=== PATIENT | female | born 1955 | race Caucasian/White ===

== ENCOUNTER 2017-10-02 12:30 | Outpatient (RCR) | payer OTHER, SELFPAY ==
--- NOTE | 2017-09-11 10:17 | PTTR_ITS ---
DATE: 09/11/17 SUBJECTIVE: Returning to work on Friday with restriction per work restriction form filled out by Dr. Ken. He has documented that she can not reach above her head more that 8 minutes per work day, but she feels she can do this without difficulty, as she is already doing that up to 2-3 hours throughout the day at home, without great pain. She is going to stop at his office to have him change the form. OBJECTIVE: KX applied to all codes N/A Manual therapy: ([id number]). To R Shoulder: Posterior capsule STM, TPR, and infraspinatus and supraspinatus work, including down regulation, incorporating IASTM Mobilization all planes, via accessory gliding grade 4++ and end range oscillations, with distraction and AP oscillations. Focus on IR mobilization where she is generally more restricted, using distraction, AP mob and IR MET's Pre rx PROM: Flexion 160*, abduction 160*, ER 80*, IR 45* Post rx PROM: Flexion 1705*, abduction 170*, ER 90*, IR 70* Direct treatment time: 30 minutes Total treatment time: 30 minutes Completes ther ex via wellness program at no charge, see flow sheet.
--- NOTE | 2017-09-15 14:51 | PTTR_ITS ---
DATE: 09/15/17 SUBJECTIVE: Pt reports that it is slow at work because of her restrictions but she is happy to be back. OBJECTIVE: Manual therapy: ([id number]). Pt received scapular jiggling and A/P glides. Pt then received AAROM into all planes with extended holds into shoulder IR and stretching the posterior cuff. Pt was able to achieve full ROM into ER and almost full ROM into flexion and IR. Therapeutic procedures ([id number]). * X Provided skilled instruction in proper exercise performance: Pt completed UE strengthening, scapular stabilization ther ex, and work simulated activities as per flow sheet. Direct treatment time: 30 Total treatment time: 45
--- NOTE | 2017-09-18 15:12 | PTTR_ITS ---
DATE: 09/18/17 SUBJECTIVE: Has returned to work on light duty, she is to not have her arm overhead her for more than 20 minutes at a time. 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 She is more inactive, which she feels has allowed for her shoulder to stiffness up some, but she remains compliant with her HEP stretches. Due to her inactivity, she feels she has made less gains since last being at PT. She will follow up with Jesus Manuel on the 08 of October, and will remain on the same work restrictions until that time. OBJECTIVE: KX applied to all codes N/A R shoulder AROM: flexion 175*, abduction 175*, ER T4, IR mid R buttock. Pain end range IR, stiffness otherwise endrange flexion and abduction. PROM Flexion 180*, abduction 180* with mild discomfort but alleviated with AP MWM, IR 30*, ER 90*. End range IR 80* Strength: Flexion 4+/5, abduction 4-/5 with pain, ER 4+/5, IR 3+/5 with pain Manual therapy: ([id number]). R GH gliding all planes of accessory motion for general desensitization, with AP restriction appreciated. End range flexion and quadrant mobilization with AP grade 4++ oscillations and sustained holds. ST mobilization, with focus down rotation, with arm into pain free IR position. IR mobilization with IR MET's, at multiple angles of IR from 0-70* in loose packed position. Lower trap cueing. STM R posterior shoulder capsule, and infraspinatus and supraspinatus fossa. HEP Progression: Instructed in IR isometrics at multiple angles of flexion in frontal and coronal planes. Lower trap cueing. Completes ther ex wellness routine, with head athletic trainer, per my direction. See flow sheet. Direct treatment time: 30 minutes Total treatment time: 30 minutes Assessment: Making steady gains, with most remarkable impairment of restriction into IR direction and IR weakness. Has great response to use of IR MET's with excellent mobility gains post treatment. Patient to initiate more IR strengthening at home, with good scapular stability mechanics with lower trap activation. Plan: Proceed 2x/week for mobilization and STM of R shoulder girdle, and strengthening with focus IR.
--- NOTE | 2017-09-24 09:31 | PTTR_ITS ---
DATE: 09/24/17 SUBJECTIVE: Pt reports feeling fine, no pain. Still has weakness with overhead activity and functional IR. Still on light duty at work and this is frustrating to her. OBJECTIVE: Manual therapy: ([id number]). With pt in supine, mobilizations applied to GH joint including AP and posterolateral glides, PROM into flexion 170*, abduction 170*, IR 80* and ER 90*. Stretch applied at end ranges. Mild discomfort reported at end range flexion and ER. Cross friction work to GT. Scapular jiggles applied. Pt turned to left sidelying , STM to posterior capsule, lateral scapular border, supraspinatus, infraspinatus, and upper trap. Discomfort noted in posterior capsule and upper trap. Friction massage to posterior capsule to stimulate blood flow. TPR to upper trap, supraspinatus. Pt then went out to clinic gym to complete strengthening program via obedience trainer supervision. Direct treatment time: 30 minutes Total treatment time: 30 minutes
--- NOTE | 2017-09-29 13:33 | PTTR_ITS ---
DATE: 09/29/17 SUBJECTIVE: Ирина stating that she is overall making good gains struggles mainly now with higher level activities such as heavy lifting overhead movements. She has returned to work really without much restriction or complication. She feels that if anything it is really making her shoulder worse due to the fact that she is not as active. OBJECTIVE: ROM (R) shoulder: Full with end range soft tissue restriction into flexion and abduction but no pain. IR only reaches the level of L1 versus T9 at the (L) but this is improved from (R) mid buttock compared to prior sessions. Strength: Flexion/ Abduction are both 4+/5, IR is 3+ to 4-/5 with ER 5/5. Accessory Motions are WNL with glenohumeral joint and moderate limitations with AP scap thoracic WNL. Manual therapy: ([id number]). Mobilize (R) glenohumeral joint in all planes of motion with distraction utilized into flexion and quadrant position with AP MWM at end ranges. Cross body for posterior capsule stretching with stabilization of the scapula. Work on IR mobilization utilizing IR METs at multiple angles of abduction. In prone complete (R) glenohumeral extension and end range oscillations incorporating adduction and IR overpressure with proper scapular alignment. She has been seen for wellness program with a strainer mill operator at no charge per flow sheet. Please see flow sheet for specifics. Direct treatment time: 30 minutes Total treatment time: 30 minutes
--- NOTE | 2017-10-02 13:18 | PTTR_ITS ---
DATE: 10/02/17 SUBJECTIVE: Reports to be making gains weekly. She has no difficulty with her current work duties, and is hoping Dr. Ken will allow for her full return to work duties, at her follow up with him next. week. She has no pain or limitation with basic ADL's or self care activities. She only has pain, rating in at a 5/10, with quick, unexpected movements of the R arm. Pain quickly resolves. Compliant with HEP: x Yes No OBJECTIVE: KX applied to all codes N/A Manual therapy: ([id number]). To R shoulder: Distraction, and gliding all panes for general desensitization for treatment prep AP garde 4++ gliding 0-90* abduction, and end range flexion and abduction/ quadrant. ER end range AP MWM, for pain reduction. IR mobilization extensively, with IR MET's, grade 4-- oscillations with distraction and AP MWM Prone GH extension with adduction over pressure, to encourage IR mobility. STM R posterior capsule and infraspinatus/teres minor AROM: Flexion 170*, abduction 170* - both slight scapular plane movement. IR L1 , ER WNL PROM: Flexion 180* with P!, abduction 180* with slight scapular plane movement with P!, ER 80* painfree, with overpressure sever pain. IR 45* pre-treatment, 80 * post treatment with mild P!. Strength: Flexion 5/5, abduction 4/5 with discomfort, ER 4+/5, IR 3+/5, unable to perform lift off. Special testing: Empty can: Mild discomfot, but 4+/5 strength. Peters Lenard and Neer Impingement: Positive. Lift off: Positive. Anterior clunk labral testing: Positive. Review HEP, and patient demonstrates good understanding of entire ther ex routine flow sheet, to be able to carry out exercises appropriately at home. She is instructed to do this daily, with focus of IR isometrics, lower trap activation with all exercises and general close chain stabilization. Direct treatment time: 30 minutes Total treatment time: 30 minutes Assessment: Ирина presents with clinical signs and symptoms consistent with internal derangement of the R shoulder, as demonstrated by joint crepitus and instability with IR, anterior joint swelling, gross weakness, specifically of IR , and poor dynamic stability of the shoulder, and appreciable episodic joint clunk with rotation movements. She is making steady, but slow, progress with rehabilitation efforts. Her most remarkable impairments include IR weakness and mobility loss, visual swelling at anterior GH joint, and end range flexion and abduction capsular restriction. She has reduced, but still present, soft tissue dysfunction through the R shoulder girdle (specifically the fascia overlying the posterior capsule, and subscapularis tension), and gaining strength and mobility. Her continues impairments are contributing to functional limitations of quick movements of the right shoulder, and occasional struggle with long lever lifting. Functional ADL's and self care not affected. I think she is appropriate to have her work restrictions reduced. Plan: Proceed with PT 1x/week, with patient independent with strengthening and stabilization, self mobilization stretching the best she can.
--- NOTE | 2017-10-09 10:58 | NT_ITS ---
Ирина cancelled today's appointment. She got called in to work. She is doing fine, therefore did not reschedule. She will call if she needs to reappoint. Kavita Llanes [place]
== END 2017-10-10 23:59 | disposition home or self-care (01) ==
LOC: PT 12:30
PROVIDERS: PCP Family Medicine; Referring Provider Student in an Organized Health Care Education/Training Program; Visit Provider Student in an Organized Health Care Education/Training Program
DX: S46.901D Unspecified injury of unspecified muscle, fascia and tendon at shoulder and upper arm level, right arm, subsequent encounter (principal)
CPT/HCPCS: 97110; 97140

== ENCOUNTER → 2017-10-08 14:24 | Outpatient (CLI) | payer OTHER, SELFPAY ==
--- NOTE | 2017-10-09 07:44 | ONE_ITS ---
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 ASSESSMENT Left hip pain tendinopathy post fall. PLAN Awaiting Work Comp approval for surgical intervention, with goal of pain relief. She is returning to work without limitations at this time. She understands that she will continue to modify tasks as needed, but has not had difficulty managing this safely. I did not arrange a followup here, but will see her post op or if she runs into any difficulties with work activities. Greater than 50% of this visit was spent in planning and coordinating. SUBJECTIVE Ms. Méndez returns for followup on left hip pain related to tendon tear. She has just been re-evaluated by Orthopedics and surgery is being recommended. They are seeking clearance from Workers Comp with an estimated schedule date of 12/09. She says she has returned to work on light duty in regard to her shoulder only. In regard to the left hip, she has been able to perform the functions of her job despite the limitations that were created at her last visit here. She says the hip remains painful laterally. It is worse at night, especially when rolling over. This really awakens her from a sound sleep. REVIEW OF SYSTEMS Right shoulder pain, much improved. No chest, pain, cough, wheeze or dyspnea. No numbness, tingling, paresthesias of the lower extremities. She does have ongoing bilateral knee pain unrelated to hip pain. PAST MEDICAL HISTORY Hypertension. Gastroesophageal reflux disease. Low back pain stable at this time. Cholecystectomy in the distant past. Unspecified cardiac valve disease with recent cardiac evaluation. CURRENT MEDICATIONS 1. Omeprazole. 2. Ibuprofen and Tylenol p.r.n. 3. Lisinopril 5 mg daily. ALLERGIES No known allergies. SOCIAL Single, living with significant other. HABITS Quit smoking over 20 years ago. One alcoholic beverage per day. Tries to stay active outdoors with yard work. Enjoys swimming. OBJECTIVE Alert, pleasant, cooperative, in no acute distress. Gait is mildly antalgic as she begins ambulating, but it normalizes after a few steps. Musculoskeletal exam - Left hip is exquisitely tender to palpation posterior to the greater trochanter. Straight leg raises are essentially negative, each leg extending about 70 degrees. DTR's prepatellars are 1+ bilaterally.
== END ==
PROVIDERS: PCP Family Medicine; Visit Provider Nurse Practitioner Family
DX: S76.012D Strain of muscle, fascia and tendon of left hip, subsequent encounter (principal); M25.552 Pain in left hip; M54.5 Low back pain
CPT/HCPCS: 99214

== ENCOUNTER 2017-12-03 13:47 | Outpatient (CLI) | payer OTHER, SELFPAY ==
--- NOTE | 2017-12-03 18:13 | W.PREOPHP ---
Date of service: 12/03/17 Assessment and Plan (1) Trochanteric bursitis of left hip: Current visit: Yes Status: Chronic IT band tenotomy, with abductor tendon repair. Details of surgery were discussed with patient as well as risks, and pertinent anatomy. All questions were answered. History of Present Illness Chief Complaint: Left hip pain Narrative: Ирина is a 62-year-old female who is been complaining of left hip pain for many months now. She had an injury at work where she slipped on the ice landing directly on her left hip. She has been trying conservative measures to decrease the pain in her left hip including physical therapy, injections, and exercises at home. She states that it bothers her the most when she is going up stairs, or getting up from a seated position especially if she is been seated for a long time. She has also been trying anti-inflammatories, none of which have helped with her hip pain. She has been able to work through her hip pain, but it is getting the way of her normal activities and it is aggravating even at work. She had a previous MRI done in August which does show some partial tearing of the abductor tendons in the left hip. At this point since she has failed conservative treatment, and especially with findings of a potential tearing of the abductor tendons, she would like to move forward with IT band tenotomy and abductor tendon repair. Pertinent Surgical Information Patient relates a recent discovery of a systolic murmur at her normal PCP visit this summer. She was sent for an echocardiogram which revealed only minor mitral valve and tricuspid valve regurgitation. Also showed mild left ventricular hypertrophy. She was instructed by her PCP that this is not significant enough to worry about. Records were obtained from [facility] about the echocardiogram. She also states that she had her cholecystectomy done here about 20 years ago, and did have some difficulty waking up from anesthesia. Otherwise no significant complications from anesthesia. Patient denies history of CVA, [place], angina, asthma, COPD, renal or liver disorders, hepatitis, bleeding disorders, diabetes, immune or thyroid disorders. Review of Systems Constitutional Denies fever(s) ENT Denies dizziness and Denies sore throat Cardiovascular Denies chest pain, Denies palpitations and Denies dyspnea Respiratory Denies dyspnea Gastrointestinal Denies abdominal pain, Denies melena, Denies hematochezia, Denies diarrhea, Denies nausea and Denies vomiting Genitourinary Denies hematuria and Denies dysuria Neurologic Denies dizziness Endocrine Denies palpitations [facility] Medical History HTN (hypertension) (Chronic) Social History Smoking/Tobacco Use Status: Former Tobacco Use how long ago did patient quit smokin years alcohol intake: current alcohol intake frequency: 0-2 drinks per day details: 1 beer nightly Surgical History History of bilateral cataract extraction (Chronic) History of cholecystectomy (Chronic) History of tonsillectomy and adenoidectomy (Chronic) Meds Home Medications Medication Instructions Recorded Confirmed Type acetaminophen [Arthritis Pain 2 tab-cap PO BID 06/02/17 12/03/17 History Relief] calcium carbonate-vitamin D3 1 ea PO DAILY 06/02/17 12/03/17 History [Calcium 500 + D] ibuprofen 600 mg PO BID 06/02/17 12/03/17 History multivitamin [Daily Multi-Vitamin] 1 ea PO DAILY 06/02/17 12/03/17 History omeprazole 20 mg PO DAILY 06/02/17 12/03/17 History lisinopril 5 mg PO DAILY tab-cap 08/27/17 12/03/17 History Allergies Allergy/AdvReac Type Severity Reaction Status Date / Time No Known Drug Allergies Allergy Unverified 12/03/17 13:01 Exam [facility] Head: normocephalic and atraumatic General nose exam: no nasal discharge Throat: uvula midline and no uvular edema Other: soft palate rises symmetrically, no erythema Eyes Conjunctivae: conjunctivae normal Sclera: sclerae normal Pupils: PERRL Resp Effort & Inspection: normal respiratory effort Auscultation: clear to auscultation bilaterally and no wheezes Cardio Rate: regular rate Rhythm: regular rhythm Heart Sounds: S1 normal, S2 normal and murmur systolic Other: BP: 118/56
--- NOTE | 2017-12-03 18:27 | HPE_ITS ---
Date of service: 12/03/17 Assessment and Plan (1) Trochanteric bursitis of left hip: Current visit: Yes Status: Chronic IT band tenotomy, with abductor tendon repair. Details of surgery were discussed with patient as well as risks, and pertinent anatomy. All questions were answered. History of Present Illness Chief Complaint: Left hip pain Narrative: Ирина is a 62-year-old female who is been complaining of left hip pain for many months now. She had an injury at work where she slipped on the ice landing directly on her left hip. She has been trying conservative measures to decrease the pain in her left hip including physical therapy, injections, and exercises at home. She states that it bothers her the most when she is going up stairs, or getting up from a seated position especially if she is been seated for a long time. She has also been trying anti- inflammatories, none of which have helped with her hip pain. She has been able to work through her hip pain, but it is getting the way of her normal activities and it is aggravating even at work. She had a previous MRI done in August which does show some partial tearing of the abductor tendons in the left hip. At this point since she has failed conservative treatment, and especially with findings of a potential tearing of the abductor tendons, she would like to move forward with IT band tenotomy and abductor tendon repair. Pertinent Surgical Information Patient relates a recent discovery of a systolic murmur at her normal PCP visit this summer. She was sent for an echocardiogram which revealed only minor mitral valve and tricuspid valve regurgitation. Also showed mild left ventricular hypertrophy. She was instructed by her PCP that this is not significant enough to worry about. Records were obtained from [facility] about the echocardiogram. She also states that she had her cholecystectomy done here about 20 years ago, and did have some difficulty waking up from anesthesia. Otherwise no significant complications from anesthesia. Patient denies history of CVA, [place], angina, asthma, COPD, renal or liver disorders, hepatitis, bleeding disorders, diabetes, immune or thyroid disorders. Review of Systems Constitutional Denies fever(s) ENT Denies dizziness and Denies sore throat Cardiovascular Denies chest pain, Denies palpitations and Denies dyspnea Respiratory Denies dyspnea Gastrointestinal Denies abdominal pain, Denies melena, Denies hematochezia, Denies diarrhea, Denies nausea and Denies vomiting Genitourinary Denies hematuria and Denies dysuria Neurologic Denies dizziness Endocrine Denies palpitations [facility] Medical History HTN (hypertension) (Chronic) Social History Smoking/Tobacco Use Status: Former Tobacco Use how long ago did patient quit smokin years alcohol intake: current alcohol intake frequency: 0-2 drinks per day details: 1 beer nightly Surgical History History of bilateral cataract extraction (Chronic) History of cholecystectomy (Chronic) History of tonsillectomy and adenoidectomy (Chronic) Meds Home Medications Medication Instructions Recorded Confirmed Type acetaminophen [Arthritis Pain 2 tab-cap PO BID 06/02/17 12/03/17 History Relief] calcium carbonate-vitamin D3 1 ea PO DAILY 06/02/17 12/03/17 History [Calcium 500 + D] ibuprofen 600 mg PO BID 06/02/17 12/03/17 History multivitamin [Daily Multi-Vitamin] 1 ea PO DAILY 06/02/17 12/03/17 History omeprazole 20 mg PO DAILY 06/02/17 12/03/17 History lisinopril 5 mg PO DAILY tab-cap 08/27/17 12/03/17 History Allergies Allergy/AdvReac Type Severity Reaction Status Date / Time No Known Drug Allergies Allergy Unverified 12/03/17 13:01 Exam [facility] Head: normocephalic and atraumatic General nose exam: no nasal discharge Throat: uvula midline and no uvular edema Other: soft palate rises symmetrically, no erythema Eyes Conjunctivae: conjunctivae normal Sclera: sclerae normal Pupils: PERRL Resp Effort & Inspection: normal respiratory effort Auscultation: clear to auscultation bilaterally and no wheezes Cardio Rate: regular rate Rhythm: regular rhythm Heart Sounds: S1 normal, S2 normal and murmur systolic Other: BP: 118/56
== END 2017-12-03 14:07 ==
PROVIDERS: PCP Family Medicine; Visit Provider Student in an Organized Health Care Education/Training Program
DX: M70.62 Trochanteric bursitis, left hip (principal); S76.012D Strain of muscle, fascia and tendon of left hip, subsequent encounter; Z01.818 Encounter for other preprocedural examination
CPT/HCPCS: NC

== ENCOUNTER 2017-12-09 09:51 | Day surgery (SDC) | payer OTHER, SELFPAY ==
--- NOTE | 2017-12-09 10:32 | W.PM.DSUDISC ---
Discharge Plan Disposition Patient Disposition: HOME Condition: Good Discharge Details Reason For Visit: Left Trochanteric Bursitis and Abductor Tear Attending Provider: James Ken Primary Care Provider: [place] Valdivia Home Meds and New Rx's Prescriptions: New ibuprofen 600 mg tablet 600 mg PO TID PRN (Reason: pain) Qty: 90 RF: 3 hydrocodone-acetaminophen 5-325 mg tablet 1 tab PO Q4H PRN (Reason: pain) Qty: 14 RF: 0 Continue multivitamin [Daily Multi-Vitamin] 1 EACH tablet 1 ea PO DAILY RF: 0 acetaminophen [Arthritis Pain Relief (acetam)] 650 MG tablet 2 tab-cap PO BID RF: 0 calcium carbonate-vitamin D3 [Calcium 500 + D] 1 EACH tablet 1 ea PO DAILY RF: 0 omeprazole 20 MG tablet,delayed release (DR/EC) 20 mg PO DAILY RF: 0 lisinopril 2.5 MG tablet 5 mg PO DAILY RF: 0 Discontinued ibuprofen 200 MG capsule 600 mg PO BID RF: 0 Discharge Instructions Additional Instructions: ACTIVITY: You may bear weight on your left leg fully. You should use the walker at all times for the first 2 weeks. You should minimize any activity at first and avoid stairs if possible. If you must do stairs, lead with the right going up and lead with the left going down. DRESSINGS: Your dressing can stay in place until your follow-up appointment. It may get wet after 3 days but avoid direct soaking. If it gets very wet or starts to come off, you may replace it with dry, sterile gauze. MEDICATIONS: You should take Tylenol (325mg every 6 hours) and Ibuprofen (600mg every 6 hours) for baseline pain control. You have been prescribed Hydrocodone for breakthrough pain. FOLLOW-UP: 2 weeks Equipment/Supplies: Partial Weight Bearing Crutches Activity:: Activity as Tolerated Remove Dressings/Wound Care:: Do Not Remove Shower/Bathe:: 72 hours Diet:: As Tolerated Discharge Orders Discharge Orders: Discharge Order (Routine); Ordered 12/09/17 Ordered By: James Ken DS: Diagnosis Discharge Diagnosis (1) Tendinitis involving left hip abductors: Status: Acute (2) Trochanteric bursitis of left hip: Status: Chronic
[2017-12-09 10:39] VITALS: BP 148/61; PULSE 51; RESP 16; TEMP 35.4; O2SAT 100
[2017-12-09 10:44] VITALS: BP 148/61; PULSE 51; RESP 16; TEMP 35.4; O2SAT 100
--- NOTE | 2017-12-09 11:21 | PT.INIE ---
Date of service: 12/09/17 Time of Service: 11:10 PT Notes Inpatient Physical Therapy Evaluation Date: 12/09/17 Referring Doctor: James Ken PT Orders: PT CONSULT: s/p L hip abductor repair and bursectomy Precautions: WBAT L LE Patient Profile/Admitting Diagnosis: Pt is a 62yr old female s/p left hip abductor repair and bursectomy 12/09/[address] Ken Pt seen for pre-operative instruction in gait training. PMHX: hypertension, bilateral cataract extraction, cholecystectomy, tonsillectomy, adenoidectomy Social History/Home Situation: Lives with significant other in house, 3 steps with left railing to enter, all on level inside. Baseline mobility independent gait with no device, independent with ADLS. She states she has a FWW at home she can use after the surgery. Equipment Owned/DME: FWW Subjective: Pt standing in day surgery room, agreeable to PT Consult. Objective: Mental Status: A&Ox3 Gait: Pt instructed in gait training with FWW WBAT 25ftx2 using post operative sequence. Pt verbalized uunderstanding. Stairs: verbally instructed and demonstrated stair sequence with use of left railing, up with right, down with left. Pt verbalized understanding Balance: Static Sitting: normal Dynamic Sitting: normal Static Standing: normal Dynamic Standing: normal Special Tests: Mobility Limitations Standardized Measure [facility] AM-PAC 6 clicks Basic Mobility Inpatient Short Form: Raw Score: 24 Standardized Score: 61.14 CMS Score: 0% CMS Modifier: CH Informed Consent/Education: Patient instructed in purpose of PT consult and plan of care. Assessment: Pt is a 62yr old female s/p left hip abductor repair and bursectomy 12/09/[address] Ken. Pt seen for pre-operative instruction in gait training. PT independent with use of FWW and good understanding of gait sequence for level surfaces and stairs. Impairments are contributing to the following functional limitations: AMPAC score CMS Score: 0% Patient is assessed as a Low 57335 complexity based on the following: History: see above Examination: see above Presentation: stable Decision Making: AMPAC score CMS Score: 0% Goals: not applicable Plan of Care/Treatment Plan: PT eval only for gait training pre-op DISCHARGE RECOMMENDATIONS: Home, pt has FWW TREATMENT CODE/TIME: 15min IE 11:10 G Codes in the area mobility of walking and moving around: current status [id number] ; projected status GP [id number]. Discharge status (if discharging) GP [id number] based [address] [facility] scores Isa Castano PT.
--- NOTE | 2017-12-09 11:25 | IN_ITS ---
Date of service: 12/09/17 Time of Service: 11:10 PT Notes Inpatient Physical Therapy Evaluation Date: 12/09/17 Referring Doctor: James Ken PT Orders: PT CONSULT: s/p L hip abductor repair and bursectomy Precautions: WBAT L LE Patient Profile/Admitting Diagnosis: Pt is a 62yr old female s/p left hip abductor repair and bursectomy 12/09/[address] Ken Pt seen for pre-operative instruction in gait training. PMHX: hypertension, bilateral cataract extraction, cholecystectomy, tonsillectomy, adenoidectomy Social History/Home Situation: Lives with significant other in house, 3 steps with left railing to enter, all on level inside. Baseline mobility independent gait with no device, independent with ADLS. She states she has a FWW at home she can use after the surgery. Equipment Owned/DME: FWW Subjective: Pt standing in day surgery room, agreeable to PT Consult. Objective: Mental Status: A&Ox3 Gait: Pt instructed in gait training with FWW WBAT 25ftx2 using post operative sequence. Pt verbalized uunderstanding. Stairs: verbally instructed and demonstrated stair sequence with use of left railing, up with right, down with left. Pt verbalized understanding Balance: Static Sitting: normal Dynamic Sitting: normal Static Standing: normal Dynamic Standing: normal Special Tests: Mobility Limitations Standardized Measure [facility] AM-PAC 6 clicks Basic Mobility Inpatient Short Form: Raw Score: 24 Standardized Score: 61.14 CMS Score: 0% CMS Modifier: CH Informed Consent/Education: Patient instructed in purpose of PT consult and plan of care. Assessment: Pt is a 62yr old female s/p left hip abductor repair and bursectomy 12/09/[address] Ken. Pt seen for pre-operative instruction in gait training. PT independent with use of FWW and good understanding of gait sequence for level surfaces and stairs. Impairments are contributing to the following functional limitations: AMPAC score CMS Score: 0% Patient is assessed as a Low 57771 complexity based on the following: History: see above Examination: see above Presentation: stable Decision Making: AMPAC score CMS Score: 0% Goals: not applicable Plan of Care/Treatment Plan: PT eval only for gait training pre-op DISCHARGE RECOMMENDATIONS: Home, pt has FWW TREATMENT CODE/TIME: 15min IE 11:10 G Codes in the area mobility of walking and moving around: current status [id number] ; projected status GP [id number]. Discharge status (if discharging) GP [id number] based on [facility] scores Isa Castano PT.
[2017-12-09] MEDS: Lactated Ringers 1,000 ML 80 ML IV ×2 (11:40→13:45)
[2017-12-09] MEDS: Bupivacaine 0.25% Pres-Free 30 ML VIAL ×2 (13:52→14:33)
[2017-12-09] MEDS: HYDROcodone 5/Acetaminophen 325 TAB PO (15:36)
[2017-12-09 16:00] VITALS: BP 132/70; PULSE 60; RESP 16; TEMP 36.4; O2SAT 99
[2017-12-09] MEDS: Acetaminophen 325 MG TAB 650 MG PO (16:30)
--- NOTE | 2017-12-10 11:34 | ROE_ITS ---
REPORT OF OPERATIVE PROCEDURE DATE OF PROCEDURE December 09, 2017 PREOPERATIVE DIAGNOSES Recalcitrant trochanteric bursitis of the left hip, left hip abductor tear. POSTOPERATIVE DIAGNOSES Recalcitrant trochanteric bursitis of the left hip, left hip abductor tear. SURGERY Resection of the trochanteric bursa, as well as repair of the hip abductor tendons using a single 6.5 -mm suture anchor. SURGEON James Ken M.D. HOTEL OFFICE MANAGER Jaki Moore PA-C FINDINGS There was a significant amount of bursal tissue seen over the greater trochanter. The abductors were torn nearly completely through from approximately 12 to 3 o'clock. This was seen by a large defect i n the tendon by about 1 centimeter to 2. There was also smoothing and glossiness of the tr ochanter in this area, which was roughened and prepared for surgical repair of the abductor tendons. ANESTHESIA Spinal. ESTIMATED BLOOD LOSS 50 cc COMPLICATIONS None. DISPOSITION The patient was awakened from sedation and taken to the PACU in stable condition. INDICATION FOR PROCEDURE Ирина is a 62-year old who had a fall at work. She had persistent pain over the left hip. We treated this conservatively with multiple injections and conservative treatment options including therapy. Ho wever, she continued to have pain and weakness. Given these limitations, I did offer surgical interve ntion. I discussed the risk of the procedure to include bleeding, infection, pain, stiffness, damage to nerves and vessels, damage to muscles and tendons. Despite these risks, she elected to proceed. PROCEDURE DESCRIPTION Ирина was greeted in the preoperative holding area. Her identity was confirmed and the correct side was identified and marked. The consent was reviewed with the patient and signed. She was placed in t he seated position for spinal anesthetic administration. After the spinal was administered, she was p laced onto her right side. She was positioned on top of the beanbag with an axillary roll. All bony p rominences were well padded including the arms around pillows. She was secured to the bed with a belt as well as the beanbag in a right lateral decubitus position. The left hip was then prepped with Chl oraPrep and draped in a standard fashion. Prophylactic antibiotics in the form of cefazolin were give n. A timeout was performed for safe surgery. A slightly curved incision was made overlying the greate r trochanter and extending posteriorly. There was a significant amount of subcutaneous fat, which dis sected down onto the IT band. Once the IT band was identified, it was incised longitudinally and part of the gluteus nico muscles were split. Charnley retractor was placed deep. We were able to ident simon a significant amount of bursal tissue. This bursal tissue were dissected sharply. There was also noted to be a defect palpably of the assertion to the abductors on the greater trochanter. There was a thicker layer of bursal tissue seen overlying this, which was resected. Once this was resected, th e defect of the abductor tendon was able to be visualized. At its corresponding insertion site to the greater trochanter there was noted to be some irregularity and also some glossiness suggesting of a pull-off of the abductor tendons. This was primarily from 12 o'clock to 3 o'clock of the gluteus medi us tendon. I dissected the tissue plane on top of the abductors to make sure there was adequate excur miladys. An Allis clamp was used to ensure that the abductor tendon and the muscle would reapproximate t o the bone. The bone of the greater trochanter, superolateral margin, was debrided with a rongeur, as well as a curette to roughen up the bony surface. A 6.5-mm Mitek Fastin metal anchor was then placed into the greater trochanter with excellent purchase. I then placed two horizontal mattress sutures w ithin the tendon of the abductor musculature. These were then tied, and reducing the abductor tendon down to bone. These were then backed up with a #2 FiberWire from anterior to posterior connecting the tendon attached anteriorly and posteriorly through the now newly re-attached middle section. These w ere tied and showed excellent approximation of the muscle tendon to the bone. The wound was then thor oughly irrigated. Any remnant bursal tissue was excised. The Charnley retractor was removed and the IT band was reapproximated with a #1- Vicryl. This was reapproximated over its entire length that was split. The point of maximal pressure over the greater trochanter was then incised transversely creat ing an IT band tenotomy lengthening by about 2 centimeters. The wound was again irrigated. The deep t issues were closed with a #0 and #2-0 Vicryl followed by #4-0 Monocryl in the skin. A Mepilex Silver Dressing was applied. At the end of the case, all counts were correct. She was transferred back to [facility] in stable condition.
== END 2017-12-09 17:23 | disposition home or self-care (01) ==
PROVIDERS: PCP Family Medicine; Visit Provider Student in an Organized Health Care Education/Training Program
PROC: (CPT 27062; principal; 2017-12-09 11:00)
DX: M70.62 Trochanteric bursitis, left hip (principal); S76.012A Strain of muscle, fascia and tendon of left hip, initial encounter; W19.XXXA Unspecified fall, initial encounter; Y99.0 Civilian activity done for income or pay
CPT/HCPCS: 27062; 97161; C1713; J0690

== ENCOUNTER 2019-02-27 10:42 | Outpatient (CLI) | payer OTHER, SELFPAY ==
[2019-02-27 12:44] LABS: ALT 50 U/L (14-59); AST 23 U/L (15-37); Albumin 3.8 g/dL (3.4-5.0); Alkaline Phosphatase 144 U/L (46-116); BUN 22 mg/dL (7-18); Bilirubin, Total 0.4 mg/dL (0.2-1.0); CREATININE 0.87 mg/dL (0.55-1.02); Calcium 9.2 mg/dL (8.5-10.1); Chloride 104 mmol/L (98-107); Ferritin 236 ng/mL (8-252); Glucose 82 mg/dL (74-106); Potassium 4.3 mmol/L (3.5-5.1); Sodium 143 mmol/L (136-145); TSH (W/Ref FT4) 1.37 uIU/mL (0.36-3.74); Total Protein 6.5 g/dL (6.4-8.2); Vitamin B12 611 pg/mL (193-986)
[2019-03-01 06:43] LABS: Vitamin D 25 Total 38.3 ng/ml (30-100)
== END 2019-02-27 11:02 ==
PROVIDERS: PCP Family Medicine; Visit Provider Internal Medicine Sleep Medicine
DX: R53.83 Other fatigue (principal); E55.9 Vitamin D deficiency, unspecified; M25.50 Pain in unspecified joint
CPT/HCPCS: 36415; 80053; 82306; 82607; 82728; 84443

== ENCOUNTER 2019-03-30 09:14 | Outpatient (CLI) | payer OTHER, SELFPAY ==
--- NOTE | 2019-03-30 08:35 | DI.RAD_ITS ---
EXAM: XR STANDING ALIGNMENT INDICATION: bilateral knee discomfort. COMPARISON: No exams were available for comparison TECHNIQUE: 2D digital imaging was performed. FINDINGS: There are degenerative changes in the knees bilaterally characterized by joint space narrowing and pe riarticular spurring in both the medial and lateral joint compartments. There are degenerative banks es of the ankles bilaterally. The right lower extremity measures 88.3 cm. The left lower extremity measures 88.9 cm. IMPRESSION:
[2019-03-30 10:22] LABS: HGB 12.1 g/dL (12.0-15.5); Mean Corp. HGB Concentration 32.7 g/dL (32.0-36.0); Mean Corpuscular Hemoglobin 31.2 pg (27.0-33.0); Mean Corpuscular Volume 95.4 fL (80-95); Mean Platelet Volume 10.2 fL (8.0-11.0); Platelet Count 303 x1000/uL (130-400); RBC 3.88 m/cumm (4.00-5.20); RBC Distribution Width 12.4 % (11.7-14.6); White Blood Cell Count 5.64 k/cumm (4.4-10.8)
[2019-03-30 11:29] LABS: Anion Gap 10.5 mmol/L (3-11); BUN 23 mg/dL (7-18); CO2 27.5 mmol/L (21.0-32.0); Chloride 107 mmol/L (98-107); Glucose 89 mg/dL (74-106); Potassium 5.1 mmol/L (3.5-5.1); Sodium 145 mmol/L (136-145)
== END 2019-03-30 09:34 ==
PROVIDERS: PCP Family Medicine; Visit Provider Student in an Organized Health Care Education/Training Program
DX: M25.561 Pain in right knee (principal); M25.562 Pain in left knee; M17.0 Bilateral primary osteoarthritis of knee; I10 Essential (primary) hypertension; Z01.818 Encounter for other preprocedural examination; Z01.812 Encounter for preprocedural laboratory examination
CPT/HCPCS: 36415; 80048; 85027; 86850; 86900; 86901; 77073

== ENCOUNTER 2019-04-07 05:53 | Inpatient (IN) | payer OTHER, MEDICARE, SELFPAY ==
[2019-03-30 09:10] VITALS: BP 130/58
--- NOTE | 2019-03-30 18:30 | PDOC.CMPRO ---
- If Service Date Differs Date of service: 03/30/19 Time of Service: 18:30 Care Management Progress Note CM was consulted to meet with Ирина at her pre op appointment for her bilateral knee replacement scheduled for 04/07/[address] Ken. Ирина lives in [place] in a two story home with her fiance, Rodolfo, but they only utilize one level at this time. Rodolfo will be providing her care post surgically, and transporting her via private vehicle. 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 She has many pieces of equipment currently, including a shower bench, grab bars, a raised toilet seat, arm crutches and a FWW. CM advised that she bring in the FWW for PT to evaluate. She is independent at baseline. Ирина's PCP is in [place], [place]. She has [employer] for insurance, which is through her work. She has an advance directive filled out, but it is a [place] form. CM stated that she can bring it in day of surgery and we will look at it and research where to send it for [place] directory registration. She is interested in the Portal, but would like to discuss it post surgically as she will be very busy prior to surgery. She has no further concerns at this time.
[2019-04-07] VITALS (12 sets, daily range): BP systolic 87–129; BP diastolic 42–75; PULSE 46–57; RESP 10–18; TEMP 36.2–36.9; O2SAT 99–100
[2019-04-07] MEDS: Celecoxib 200 MG CAP 400 MG PO (06:26)
[2019-04-07] MEDS: Gabapentin 300 MG CAP PO ×2 (06:27→22:17)
[2019-04-07] MEDS: Acetaminophen 500 MG TAB 1000 MG PO ×3 (06:27→20:47)
[2019-04-07] MEDS: Lactated Ringers 1,000 ML 80 ML IV ×2 (06:45→13:04)
[2019-04-07] MEDS: Bupivacaine 0.25% Pres-Free 30 ML VIAL ×2 (07:10→08:29)
[2019-04-07] MEDS: ceFAZolin 2 GM/50 ML BAG IVPB (07:36)
[2019-04-07] MEDS: Ketorolac 30 MG/ML VIAL (08:29)
[2019-04-07] MEDS: Normal Saline 20 ML VIAL (08:29)
[2019-04-07] MEDS: ceFAZolin 1 GM/50 ML BAG IVPB ×2 (15:34→23:36)
--- NOTE | 2019-04-07 15:38 | PT.INIE ---
Date of service: 04/07/19 Time of Service: 14:35 PT Notes Physical Therapy Inpatient Initial Evaluation Date: 04/07/2019 Referring Doctor: James Ken M.D. PT Orders: PT CONSULT: s/p bilateral ortho surgery Precautions: Fall. Standard. Activity as tolerated. Patient Profile/Admitting Diagnosis: Pt is a 64-year-old female presenting status post bilateral total knee arthroplasty on post-operative day zero due to bilateral karla osteoarthritis. PMHX: Medical History (Updated 03/30/19 @ 09:02 by Aisha Duval) GERD (gastroesophageal reflux disease) (Chronic) Heart murmur (Acute) HTN (hypertension) (Chronic) Surgical History (Updated 03/30/19 @ 08:27 by Aisha Duval) History of bilateral cataract extraction (Chronic) History of bursectomy (Inactive) Left trochanteric bursa excision, IT band lengthening and repair of hip abductor tendons DOS: 12/09/17 Dr. Ken History of cholecystectomy (Chronic) History of tonsillectomy and adenoidectomy (Chronic) Social History/Home Situation: Pt lives at home with her fianc? in [place]. She states there is one step to enter the home and three steps in the home. Equipment Owned/DME: grab bars, raised toilet seat. Subjective: Pt reports that she is feeling dizzy while lying in bed. States that she is able to feel her legs. Objective: General Observation: Mepilex dressing over bilateral incisions with KATT bandages. Thromboembolic pumps on bilateral LEs. Lowery catheter in place. IV line in R UE. Mental Status: alert and oriented x 4 Pain: 0/10 Vital Signs: Supine: BP 108/70 mmHg, HR 51 bpm Sitting: BP 109/65 mmHg, HR 59 bpm Standing: BP 120/70 mmHg, HR 56 bpm ROM: Right Upper Extremity: Shoulder Flexion WFL. Shoulder abduction WFL. Elbow flexion WFL. Wrist flexion WFL. Opening and closing of hand WFL. Left Upper Extremity: Shoulder Flexion WFL. Shoulder abduction WFL. Elbow flexion WFL. Wrist flexion WFL. Opening and closing of hand WFL. Right Lower Extremity: Hip flexion WFL. Hip abduction WFL. Knee flexion -14 to 94 degrees. Knee extension -14 degrees. Ankle dorsiflexion WFL. Ankle plantarflexion WFL. Left Lower Extremity: Hip flexion WFL. Hip abduction WFL. Knee flexion -8 to 105 degrees. Knee extension -8 degrees. Ankle dorsiflexion WFL. Ankle plantarflexion WFL. Strength: Right Upper Extremity: Shoulder flexors 5/5. Shoulder abductors 5/5. Elbow flexors 5/5. Elbow extensors 5/5. Insurance Claim Approver strong. Left Upper Extremity: Shoulder flexors 5/5. Shoulder abductors 5/5. Elbow flexors 5/5. Elbow extensors 5/5. Insurance Claim Approver strong. Right Lower Extremity: Hip flexors 4/5. Hip abductors 4+/5. Knee flexors 3-/5. Knee extensors 3-/5. Ankle dorsiflexors 4+/5. Ankle plantarflexors 5/5. Left Lower Extremity: Hip flexors 4-/5. Hip abductors 4+/5. Knee flexors 3-/5. Knee extensors 3-/5. Ankle dorsiflexors 4+/5. Ankle plantarflexors 5/5. Sensation: Intact as to pain and pressure on bilateral lower extremities. Bed Mobility/Transfers: Rolling Min A with HOB at 30 degrees Supine to sit Min A; complained on increased dizziness which reduced with rest Sit to supine Min A Sit to stand CGA; complained of increased dizziness Stand to sit CGA Bed to chair CGA Chair to bed CGA Gait: Pt was able to ambulate 8 feet forwards and 3 steps backwards, WBAT on the right and left lower extremity, using a front-wheeled walker. CGA provided by PT and PT student with wheelchair follow. Step to gait pattern with decreased step length and height. She complained of a ?dizzy spell? while ambulating and was instructed to rest in the chair. While sitting in the chair the pt became nauseous and vomited. Nursing was notified. Balance: Static Sitting: Normal Dynamic Sitting: Normal Static Standing: Fair Dynamic Standing: Fair Special Tests: Mobility Limitations Standardized Measure [facility] AM-PAC 6 clicks Basic Mobility Inpatient Short Form: Raw Score: 20 CMS Score: 36% deficit Informed Consent/Education: Patient instructed in purpose of PT consult and plan of care. Pt was instructed in strengthening interventions to perform every hour while in the hospital, including gluteal sets bilaterally x10, quadricep sets bilaterally x10, and ankle pumps bilaterally x10. Assessment: Pt is a 64-year-old female presenting status post bilateral total knee arthroplasty on post-operative day zero. She presented to physical therapy with impairment level findings and functional limitations as listed below. She demonstrated good mobility with ambulation as she was able walk 8 feet without complaints of increased pain or fatigue, however, was limited by the exacerbation of dizziness and nausea with movement. Vitals appeared to be stable. Pt would continue to benefit from skilled physical therapy at this time to assess the pt?s ability to negotiate stairs, as well as to improve mobility level. Patient presents with clinical signs and symptoms consistent with current/admitting diagnoses that have resulted to mobility limitations, gait instability, and generalized weakness as demonstrated by the following impairment level findings: 1. Decreased strength to B LE major muscle groups 2. Impaired standing balance 3. Impaired activity tolerance 4. Limitation of joint range of motion in bilateral knees Impairments are contributing to the following functional limitations: 1. Dependent bed mobility skills 2. Increased dependence with transfers 3. Inability to safely ambulate without assistive device and physical assistance 4. Increase completion time for mobility ADL performance 5. Increased fall risk 6. Inability to negotiate steps alone safely Patient is assessed as a 07189 moderate complexity based on the following: History: She presented to physical therapy with impairment level findings and functional limitations as listed above. AM-PAC raw score of 20 with 36% deficit. Examination: Demonstrable impairment in strength, balance, and range of motion with underlying impairments and functional limitations as documented above Presentation: Evolving Decision Makin moderate complexity Goals: Goals X1 week 1. Supine-Sit independent 2. Sit-Supine independent 3. Sit-Stand independent 4. Stand-Sit independent 5. Bed-Chair independent 6. Chair-Bed independent 7. Independent gait on level surface with use of least restrictive device for at least 300 feet without report of pain nor dyspnea 8. Independent stair negotiation while holding onto bilateral upper extremity support for at least 5 steps without report of pain nor dyspnea 9. Independent with home exercise program 10. Good static and dynamic standing balance/tolerance Plan of Care/Treatment Plan: 1-2x/day, 7 days/week x 1 week. Plan of care has been reviewed with the ASSEMBLER CRIMPER providing the service under Physical Therapy direction. Initiate Physical Therapy intervention for strengthening, bed mobility, transfers, gait, stairs, balance training, use of assistive device. DISCHARGE RECOMMENDATIONS: Discharge to home when medically cleared. PT will benefit from home health physical therapy for continued skilled physical therapy services in order to progress mobility level, strength, and balance in preparation for a smooth discharge to home. Recommend the pt ambulate with a front-wheeled walker at this time. TREATMENT CODE/TIME: 17801 x 25 minutes beginning at 14:35 P.M. Thank you very much for this referral. Damion Harper, SPT Doctor of Physical Therapy Student [facility] Supervision provided by Luly Boucher PT, DPT, CLT [facility] [place], [place]
[2019-04-07] MEDS: Rivaroxaban 10 MG TABLET PO (20:47)
[2019-04-07] MEDS: Celecoxib 200 MG CAP PO (20:48)
--- NOTE | 2019-04-07 21:16 | ROE_ITS ---
Date of service: 04/07/19 Time of Service: 11:16 Operative Note Operative Note DATE OF PROCEDURE: 04/07/19 PRE-OP DIAGNOSIS: Bilateral Knee DJD POST-OP DIAGNOSIS: same PROCEDURE: Bilateral Total Knee Arthroplasty with Intraoperative Navigation SURGEON: James Ken [employer] REPAIRER: Christine Green ANESTHESIA: regional and spinal ESTIMATED BLOOD LOSS: 300 PATHOLOGY: none sent TOURNIQUET TIME: 73 COMPLICATIONS: None Patient was transported to: PACU Patient's condition: stable Implants: RIGHT: 1. Depuy Attune Posterior Stabilized Femoral Component, Size 6 2. Depuy Attune Fixed Platform Tibial Component, Size 4 3. Depuy Attune 6x6mmm Fixed, Stabilized Poly 4. Depuy Attune Patellar Component, Size 35mm LEFT: 1. Depuy Attune Posterior Stabilized Femoral Component, Size 6 2. Depuy Attune Fixed Platform Tibial Component, Size 4 3. Depuy Attune 6x8mmm Fixed, Stabilized Poly 4. Depuy Attune Patellar Component, Size 35mm Indications: I have seen Ирина in clinic for symptoms of knee arthritis, confirmed with radiographic findings. [NAME] has exhausted nonoperative methods and was having significant limitations in daily function and desired better function and less pain. I discussed the technical details of a knee replacement. I explained the risks of the procedure to include, but not limited to, bleeding, infection, pain, stiffness, fracture, damage to nerves and vessels, damage to muscles and tendons, loosening, need for repeat procedure, blood clot and cardiopulmonary demise. Despite these risks, [NAME] elected to proceed. Findings: There was significant signs of arthritis throughout the knee. Procedure Description: Ирина was greeted in the preoperative holding area where the correct side was identified and marked. The consent was reviewed with the patient and signed. The history and physical was updated. All questions were answered. Preoperative mediacations were administered: Acetaminophen 1000mg, Celebrex 400mg, Gabapentin 300mg. An adductor canal block was then administered bilaterally by the anesthesia team in the PACU. Ирина was taken back to the operating room. A spinal anesthestic was then administered. The patient was placed into the supine position on the operating room table. A nonsterile tourniquet was placed high onto the leg but only used for cementing. Posts were placed for positioning during the procedure. All bony prominences were well padded. Prophylactic antibiotics in the form of cefazolin were administered. 1g of Tranxemic Acid was given intravenously within 30 minutes of incision. Both legs were then prepped with Chloraprep and draped in a standard fashion with impervious stockinette and extremity drape. A timeout to confirm correct identity, side and site, proced ure, allergies, anesthesia, and medical concerns was performed. RIGHT KNEE: A second prep was then performed of the right knee with ChloraPrep. An iodine impregnated occlusive dressing was then applied. With the knee in some flexion, a midline incision was made overlying the knee. Full thickness skin flaps were raised once the extensor mechanism was encountered. These were raised medially and laterally. Any bleeding was controlled with electrocautery. Once the extensor mechanism was fully exposed, a medial parapatellar arthrotomy was performed in a flexed position. All bleeding from the arthrotomy and the geniculate arteries was coagulated. A medial subperiosteal peel was performed with electrocautery to the midcoronal plane. The fat pad was removed while keeping the patellar tendon protected. The anterior distal femur synovium was removed for later visualization. The ACL and PCL were resected and the anterior horn of the lateral meniscus was transected. The knee was then flexed with the patella everted. Large osteophytes from the tibia were removed. Large osteophytes from the femur were removed. There was some hypoplasia of the lateral femoral condyle and any remnant cartilage of the medial femoral condyle was removed for appropriate thickness. A single starting pin was then placed 1cm anterior to the PCL insertion and the notch in the direction of the femoral head. The OrthoAlign device was applied over the pin. It was oriented to be in line with the epicondylar axis and the trochlear groove. It was then pinned into place. The navigation computer was then turned on and calibrated. The distal femur cut was set at 0 degrees varus/valgus and 2.5 degrees flexion. The distal femur cutting guide then was positioned for a 9mm cut. The distal femur was cut with an oscillating saw while protecting the soft tissues. The tibia was then addressed. The OrthoAlign device was placed over the tibial tubercle and medial tibia and secured into position. Once again, OrthoAlign was calibrated and then set for a 0 degree varus/valgus cut and 3 degrees of posterior slope. With this locked into position, the cut thickness stylus was used to assess cut thickness. This was a balance cut with approximately 6 mm of medial bone removed and 8 mm of lateral bone. This was then held in position and pinned into place with 2 additional pins and a cross pin for stability. The medial and lateral collateral ligaments were protected and the cut was performed. With this completed, it was assessed and noted to be of appropriate dimensions. The guide and OrthoAlign was removed. A spacer block was inserted and the knee was brought into extension. The 6mm spacer block provided full extension, without hyperextension and with stability of both the medial and lateral collateral ligaments was assessed. The pins from the femur and the tibia were then removed. The distal femur was then sized. The anterior stylus was placed onto the lateral ridge of the anterior femur. This indicated a size 6 femur. The external rotation of the guide was adjusted to 3 degrees to match the epicondylar axis, perpendicular to [place]?s line. I initially rotated slightly more due to the hypoplasia of the lateral side but this was too much as it opened up the medial flexion space. The 4-in-1 cutting guide was the placed. The posterior medial femur cut was evaluated and appeared of good thickness. The spacer block was inserted underneath the cutting guide and stability was confirmed in 90 degrees of flexion. An rebecca wing was used to confirm appropriate position of the anterior cut to avoid notching. This cutting guide was ensured to be flush on the cut surface and then pinned into place with headed pins. While protecting the soft tissues, quad tendon, and collateral ligaments, the anterior and posterior cuts were performed with a saw. The central two pins were removed and the posterior and anterior chamfers were cut next. The notch-cutting guide was placed. This was pinned to lateralize the femoral component as much as possible while keeping it flush on the cut surface. This was then pinned into position. A reciprocating saw was used to make the notch cut. A rasp smoothed the cut surfaces. A trial posterior stabilized femoral component was then inserted, impacted down to the cut surfaces, and the lug holes were drilled. A provisional trial tibial component was placed and the knee was brought through range of motion. There was noted to be excellent extension and flexion. There was no significant instability. The patella was tracking without thumbs. The tibial cut surface was fully exposed. The medial and lateral menisci were removed. The tibia was then sized as a 4. The tibia had been previously marked during trialing to correspond to the center of the tibial component to help with rotation. The trial was aligned to this christine, approximately rotated to the medial 1/3rd of the tibial tubercle. The trial was pinned into place. The tibia was prepared with a reamer and a keel punch. The knee was then brought into extension and the patella was measured as 25 mm. Using the patellar clamp and cut guide, this was resected to a flat surface with at least 13mm of thickness remaining. The size 35 patella fit the best. This was oriented and then clamped into position. The lugs were drilled. The trial components were removed. The final components, except for the polyethylene were opened on the back table. The periosteal and capsular tissues, especially posteriorly, around the knee were then systematically injected with a periarticular cocktail consisting of 50cc 0.25% Marcaine, 30mg Ketorolac, 20cc of Exparal and 50cc of injectable saline. The tourniquet was then inflated to 275mmHg. The knee was thoroughly irrigated with a pulse lavage and dried. On the back table, with the implants opened, the cement was mixed. 2 batches of antibiotic laden cement were prepared with vacuum assistance. After the cement was ready a small amount was placed on to the back side of the tibial component at the keel. A small amount was placed onto the posterior flange of the femur. Cement was manual pressurized and impregnated into the cut surface of the tibia. The tibial component was then inserted into the cut surface and impacted into position. Excess cement was removed and the component was reimpacted. Again, excess cement was removed and our attention was then turned to the femur. The femoral cut surface was once again dried and cement was manually impacted into the cut surface. The femoral component was lined with the lug holes and impacted. Excess cement was removed. It was ensured to be down against the cut surface. The trial polyethylene was then inserted and the leg was brought out into full extension for the duration of the cement curing process, approximately 15min. Cement was lastly manually impacted into the cut surface of the patella and the patellar button was clamped into position and held. During this process attention was turned to the gutters of the knee and for all interfaces for any excess cement. During this time, the knee was also irrigated with Irrisept chlorhexidine solution. After the cement had finally cured, approximately 15min, the clamp was removed from the patella and the knee was taken through range of motion. A size 6mm polyethylene component provided the best range of motion and stability with less than 2mm gapping with medial and lateral stress and full extension without significant hyperextension. The patella was tracking with a no-thumbs technique. The trial poly was removed and once again the knee was checked for any loose, excess, or errant cement. The poly component was then inserted and impacted into position after cleaning and drying the tibial tray. The capsule was then reapproximated with a No. 1 Vicryl at multiple locations. The capsule was finally closed with a No. 2 Stratafix, barbed suture. The tourniquet was then released and the arthrotomy appeared watertight without significant bleeding. The second dosing of 1g TXA was started. Deep tissues were then reapproximated with 0 Vicryl and 2-0 Vicryl. The skin was closed with a running 3-0 Monocryl in a subcuticular fashion. This was reinforced with skin glue. A Mepilex silver dressing was applied. Attention was then turned to the left knee. 1 g of tranexamic acid was initiated intravenously. LEFT KNEE: A second prep was then performed of the left knee with ChloraPrep. An iodine impregnated occlusive dressing was then applied. With the knee in some flexion, a midline incision was made overlying the knee. Full thickness skin flaps were raised once the extensor mechanism was encountered. These were raised medially and laterally. Any bleeding was controlled with electrocautery. Once the extensor mechanism was fully exposed, a medial parapatellar arthrotomy was performed in a flexed position. All bleeding from the arthrotomy and the geniculate arteries was coagulated. A medial subperiosteal peel was performed with electrocautery to the midcoronal plane. The fat pad was removed while keeping the patellar tendon protected. The anterior distal femur synovium was removed for later visualization. The ACL and PCL were resected and the anterior horn of the lateral meniscus was transected. The knee was then flexed with the patella everted. Large osteophytes from the tibia were removed. Large osteophytes from the femur were removed. A single starting pin was then placed 1cm anterior to the PCL insertion and the notch in the direction of the femoral head. The OrthoAlign device was applied over the pin. It was oriented to be in line with the epicondylar axis and the trochlear groove. It was then pinned into place. The navigation computer was then turned on and calibrated. The distal femur cut was set at 0 degrees varus/valgus and 2.5 degrees flexion. The distal femur cutting guide then was positioned for a 10mm cut. The distal femur was cut with an oscillating saw while protecting the soft tissues. The tibia was then addressed. The OrthoAlign device was placed over the tibial tubercle and medial tibia and secured into position. Once again, OrthoAlign was calibrated and then set for a 0 degree varus/valgus cut and 3 degrees of posterior slope. With this locked into position, the cut thickness stylus was used to assess cut thickness. The proximal tibia had a slightly unusual appearance. There was notable deformity of the lateral plateau more than the medial side, on expected from preoperative x-rays. Once again, a more balanced cut was removed with about 6 mm of lateral bone and 8 mm of medial bone. This was then held in position and pinned into place with 2 additional pins and a cross pin for stability. The medial and lateral collateral ligaments were protected and the cut was performed. With this completed, it was assessed and noted to be of appropriate dimensions. The guide and OrthoAlign was removed. A spacer block was inserted and the knee was brought into extension. The 7 mm spacer block provided full extension, without hyperextension and with stability of both the medial and lateral collateral ligaments was assessed. The pins from the femur and the tibia were then removed. The distal femur was then sized. The anterior stylus was placed onto the lateral ridge of the anterior femur. This indicated a size 6 femur. The external rotation of the guide was adjusted to 3 degrees to match the epicondylar axis, perpendicular to [place]?s line. The 4-in-1 cutting guide was the placed. The posterior medial femur cut was evaluated and appeared of good thickness. The spacer block was inserted underneath the cutting guide and stability was confirmed in 90 degrees of flexion. An rebecca wing was used to confirm appropriate position of the anterior cut to avoid notching. This cutting guide was ensured to be flush on the cut surface and then pinned into place with headed pins. While protecting the soft tissues, quad tendon, and collateral ligaments, the anterior and posterior cuts were performed with a saw. The central two pins were removed and the posterior and anterior chamfers were cut next. The notch-cutting guide was placed. This was pinned to lateralize the femoral component as much as possible while keeping it flush on the cut surface. This was then pinned into position. A reciprocating saw was used to make the notch cut. A rasp smoothed the cut surfaces. A trial posterior stabilized femoral component was then inserted, impacted down to the cut surfaces, and the lug holes were drilled. A provisional trial tibial component was placed and the knee was brought through range of motion. The polyethylene was trialed until there was good flexion and extension with excellent stability to the medial and lateral collaterals. The patella was tracking without thumbs. The tibial cut surface was fully exposed. The medial and lateral menisci were removed. The tibia was then sized as a 4. The tibia had been previously marked during trialing to correspond to the center of the tibial component to help with rotation. The trial was aligned to this christine, approximately rotated to the medial 1/3rd of the tibial tubercle. The trial was pinned into place. The tibia was prepared with a reamer and a keel punch. The knee was then brought into extension and the patella was measured as 25 mm. Using the patellar clamp and cut guide, this was resected to a flat surface with at least 13mm of thickness remaining. The size 35 patella fit the best. This was oriented and then clamped into position. The lugs were drilled. The trial components were removed. The final components, except for the polyethylene were opened on the back table. The periosteal and capsular tissues, especially posteriorly, around the knee were then systematically injected with a periarticular cocktail consisting of 50cc 0.25% Marcaine, 30mg Ketorolac, 20cc of Exparal and 50cc of injectable saline. The tourniquet was then inflated to 275mmHg. The knee was thoroughly irrigated with a pulse lavage and dried. On the back table, with the implants opened, the cement was mixed. 2 batches of antibiotic laden cement were prepared with vacuum assistance. After the cement was ready a small amount was placed on to the back side of the tibial component at the keel. A small amount was placed onto the posterior flange of the femur. Cement was manual pressurized and impregnated into the cut surface of the tibia. The tibial component was then inserted into the cut surface and impacted into position. Excess cement was removed and the component was reimpacted. Again, excess cement was removed and our attention was then turned to the femur. The femoral cut surface was once again dried and cement was manually impacted into the cut surface. The femoral component was lined with the lug holes and impacted. Excess cement was removed. It was ensured to be down against the cut surface. The trial polyethylene was then inserted and the leg was brought out into full extension for the duration of the cement curing process, approximately 15min. Cement was lastly manually impacted into the cut surface of the patella and the patellar button was clamped into position and held. During this process attention was turned to the gutters of the knee and for all interfaces for any excess cement. After the cement had finally cured, approximately 15min, the clamp was removed from the patella and the knee was taken through range of motion. A size 8 mm polyethylene component provided the best range of motion and stability with less than 2mm gapping with medial and lateral stress and full extension without significant hyperextension. The patella was tracking with a no-thumbs technique. The trial poly was removed and once again the knee was checked for any loose, excess, or errant cement. The poly component was then inserted and impacted into position after cleaning and drying the tibial tray. The capsule was then reapproximated with a No. 1 Vicryl at multiple locations. The capsule was finally closed with a No. 2 Stratafix, barbed suture. The tourniquet was then released and the arthrotomy appeared watertight without significant bleeding. The second dosing of 1g TXA was started. Deep tissues were then reapproximated with 0 Vicryl and 2-0 Vicryl. The skin was closed with a running 3-0 Monocryl in a subcuticular fashion. This was reinforced with skin glue. A Mepilex silver dressing was applied along with a [id number] KATT wrap of both legs. A CryoCuff was applied. Ирина was transferred to the hospital bed without difficulty an suffering no apparent complication. Ирина has a good prognosis. Physical therapy will start today and without restrictions, weight-bearing as tolerated. Rivaroxaban 10 mg daily will be used for DVT prophylaxis.
[2019-04-08] MEDS: Lactated Ringers 1,000 ML 80 ML IV (02:08)
[2019-04-08 03:17] VITALS: BP 94/58; PULSE 54; RESP 16; TEMP 35.5; O2SAT 100
[2019-04-08] MEDS: oxyCODONE 5 MG TAB PO ×4 (05:53→17:54)
[2019-04-08 07:22] LABS: Anion Gap 8.5 mmol/L (3-11); BUN 26 mg/dL (7-18); CO2 26.5 mmol/L (21.0-32.0); CREATININE 0.82 mg/dL (0.55-1.02); Calcium 8.8 mg/dL (8.5-10.1); Chloride 105 mmol/L (98-107); Glucose 137 mg/dL (74-106); Potassium 4.7 mmol/L (3.5-5.1); Sodium 140 mmol/L (136-145)
[2019-04-08 07:42] VITALS: BP 104/64; PULSE 59; RESP 17; TEMP 36.5; O2SAT 99
[2019-04-08] MEDS: Multivitamin TAB 1 TAB PO (07:56)
[2019-04-08] MEDS: Omeprazole 20 MG CAPCR PO (07:56)
[2019-04-08] MEDS: Acetaminophen 500 MG TAB 1000 MG PO ×3 (07:56→20:02)
[2019-04-08] MEDS: Celecoxib 200 MG CAP PO ×2 (07:57→20:03)
[2019-04-08] MEDS: Normal Saline Flush 10 ML SYR IV ×4 (07:57→22:07)
[2019-04-08] MEDS: ceFAZolin 1 GM/50 ML BAG IVPB (07:57)
[2019-04-08] MEDS: Normal Saline 1,000 ML 1000 ML IV (07:58)
[2019-04-08 09:45] VITALS: BP 100/63
[2019-04-08] MEDS: Docusate Sodium 100 MG CAP PO (10:32)
[2019-04-08] MEDS: Polyethylene Glycol 3350 17 GM PACKET PO (10:32)
[2019-04-08 11:21] VITALS: BP 101/67; PULSE 62; RESP 17; TEMP 36.4; O2SAT 100
--- NOTE | 2019-04-08 14:37 | CHAPLAIN ---
Ирина told me about her bilateral knee surgery and said she wanted both knees done at once to get it over with. She seems well supported by her fiance. I explained my role and offered support.
--- NOTE | 2019-04-08 15:08 | W.PM.PROGNOT ---
Date of Service Date of service: 04/08/19 Time of Service: 08:08 Assessment and Plan Assessment and plan (1) Arthritis of both knees: Status: Chronic Assessment and plan: Ирина is a 64-year-old status post bilateral knee replacements. She is doing well. I am happy that she is Jeferson been out of the bed. I encouraged her to work physical therapy diligently. We will treat her pain accordingly. I expect that her nausea, lightheadedness, and vomiting will improve with some more time. My expectorations of her to be in the hospital for 2-3 nights and we will see how she does today with physical therapy. Continue rivaroxaban for DVT prophylaxis. Subjective Subjective Interval history since last seen: Ирина reports to be doing well. She has had some issues with lightheadedness and nausea and vomiting. However, she has not had any recently. She does have good pain control with only soreness reported in the knees. She was able to get out of the bed and sit for dinner last night. She has been able to trust the knees. She denies chest pain or shortness of breath. Exam Narrative Exam Narrative: Sitting comfortably in the bed. Both dressings are clean dry and intact. She is able to demonstrate active straight leg raise of both legs. She has active dorsiflexion and plantarflexion of both feet. Sensation grossly intact light touch over the deep and superficial peroneal nerves and tibial nerve. Objective Objective Clinical Data: Abnormal lab results 04/08/19 Range/Units 06:25 BUN 26 H (7-18) mg/dL Glucose 137 H (74-106) mg/dL Vital Signs Temperature 36.4 C L 04/08/19 11:21 Temperature Source Tympanic 04/08/19 11:21 Pulse 62 04/08/19 11:21 Pulse Rhythm Regular 04/08/19 08:00 Respiratory Rate 17 04/08/19 11:21 Respiratory Effort Non-Labored 04/08/19 08:00 Respiratory Depth Normal 04/08/19 08:00 Respiratory Pattern Normal 04/08/19 08:00 Blood Pressure 101/67 04/08/19 11:21 Pulse Oximetry 100 04/08/19 11:21 Respiratory End-tidal CO2 38 04/07/19 12:25 Oxygen Delivery Method Room Air 04/08/19 11:21 Oxygen Flow Rate 0 04/08/19 11:21 Pain Level 9 04/08/19 13:42 Intake & Output 04/07/19 04/08/19 04/08/19 23:59 11:59 23:59 Intake Total 878.667 / 1295.960 9838.667 / 3546.667 10 / 3546.667 Output Total 1125 / 1575 1200 / 1500 300 / 1500 Balance -246.333 / 73.667 2336.667 / 2046.667 -290 / 2046.667 Intake: IV 388.667 / 5960.253 5364.667 / 2466.667 10 / 2466.667 Oral 490 / 490 1080 / 1080 Output: Urine 525 / 675 1200 / 1500 300 / 1500 Emesis 600 / 600 Other: Urine Color Yellow Yellow Yellow Urine Appearance Clear Clear Clear Emesis Description Undigested Food Voiding Methods Toilet Laboratory Results Sodium 140 mmol/L (136-145) 04/08/19 06:25 Potassium 4.7 mmol/L (3.5-5.1) 04/08/19 06:25 Chloride 105 mmol/L (98-107) 04/08/19 06:25 Carbon Dioxide 26.5 mmol/L (21.0-32.0) 04/08/19 06:25 Anion Gap 8.5 mmol/L (3-11) 04/08/19 06:25 BUN 26 mg/dL (7-18) H 04/08/19 06:25 Creatinine 0.82 mg/dL (0.55-1.02) 04/08/19 06:25 Estimated GFR/1.73 m2 >= 60.00 (mL/min/1.73m2) 04/08/19 06:25 Glucose 137 mg/dL (74-106) H 04/08/19 06:25 Calcium 8.8 mg/dL (8.5-10.1) 04/08/19 06:25
--- NOTE | 2019-04-08 15:46 | PT.INTREAT ---
Date of service: 04/08/19 Time of Service: 15:47 PT Notes 04/08/2019 SUBJECTIVE: Ирина seen for PT in the AM and PM today. She notes feeling pretty good in the AM other than feeling a little weak in her LE's. Pain increased after completing of stairs. In the PM pt noting increased pain overall and she does not want to do a lot with me. OBJECTIVE: Agreeable to PT treatment x 2 today. TRANSFERS Supine to sit: S Sit to supine: Min A for LE's Sit to stand: CGA Stand to sit: CGA GAIT Device: FWW Weight bearing: AT bilaterally Assist: CGA Distance: 100'x2 in the AM, 75' in the PM Deviation: Step through pattern STAIRS: 3-4, 2-6, step to pattern, 1 rail, 1 SPC, CGA THEREX: Review of her hourly exercises. She can complete 5 active SLR bilaterally. I have her back off on these exercises in the PM due to her increase in discomfort. See flow sheet. ASSESSMENT: Pt doing well day 1 s/p bilateral knees. She is experiencing increase in pain this afternoon and we back off her activity and gait distance. Functionally she is moving great and she had no problems completing the stairs other than increase in discomfort. PLAN: Continue per POC. Treatment time: 25' in the AM [id number], [id number] 15' in the PM [id number] Nemo Moore PTA
--- NOTE | 2019-04-08 15:55 | PDOC.CMIN ---
Care Management Initial Assess REASON FOR HOSPITALIZATION:: Bilateral Knee DJD PAST MEDICAL HISTORY/PAST SURGICAL HISTORY:: GERD, heart murmur, HTN, bilateral cataract extraction, bursectomy, cholecystectomy, tonsillectomy and adenoidectomy PREVIOUS FUNCTIONAL STATUS/SOCIAL/FAMILY SUPPORTS:: Ирина resides in [place] in a two story home with her fiance, Rodolfo, but they only utilize one level at this time. Rodolfo will be providing her care post surgically, and transporting her via private vehicle. 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 She is independent at baseline. Ирина's PCP is in [place], [place]. She has [employer] for insurance, which is through her work. CURRENT FUNCTIONAL STATUS:: Ирина was lying in bed, reporting increased pain; CM notifed RN. Ирина was pleasant in interaction and shared no additional concerns at this time. ADVANCE DIRECTIVES:: Has document; filed in [place]. Has patient been provided with information about the portal?: Yes Did the patient sign up for the portal?: No CODE STATUS:: Full Code INSURANCE COVERAGE / FINANCIAL ISSUES:: [employer], Medicare CURRENT HOME/COMMUNITY SERVICES/EQUIPMENT:: shower bench, grab bars, raised toilet seat, crutches and a FWW. PRIMARY CARE PHYSICIAN:: Boston Valdivia POTENTIAL DISCHARGE NEEDS:: PT evaluation and stair training. Follow up appointments. PATIENT/FAMILY EDUCATION NEEDS:: Review discharge instructions, discuss Ask Me Three. ANTICIPATED BARRIERS TO DISCHARGE:: None identified. TRANSPORTATION:: Via private vehicle with her fianceRodolfo. PLAN:: Ирина will return home when ready per MD. She will follow up with Dr. Ken and her plan of care as prescribed including activity restrictions and medication recommendations. She will transport via private vehicle with her fijose.
[2019-04-08] MEDS: HYDROmorphone 2 MG/ML VIAL 0.5 MG IVP ×3 (16:01→22:06)
[2019-04-08 16:09] VITALS: BP 148/61; PULSE 78; RESP 18; TEMP 36.5; O2SAT 98
--- NOTE | 2019-04-08 16:33 | PHA.ADMREV ---
Pharmacy Clinical Review - Admission Clinical Review No Known Drug Allergies Allergy (Verified 03/30/19 09:29) Height 5 ft 8 in Weight 101.5 kg - Renal Dosing Renal Dosing: BUN 26 mg/dL (7-18) H 04/08/19 06:25 Creatinine 0.82 mg/dL (0.55-1.02) 04/08/19 06:25 Medications needing adjustments: Reviewed (Crcl ~85.2 mL/min using adjusted body weight, current meds okay) - Anticoagulation Anticoagulation: Creatinine 0.82 mg/dL (0.55-1.02) 04/08/19 06:25 DVT Prohphylaxis: Reviewed Medications: Rivarixaban Therapeutic Anticoagulation: N/A - Opiate Usage Evaluate Pain Scale/Pains Meds: Reviewed Scheduled Bowel Reg ordered if on Opiates?: No (PRN meds ordered) - Relevant Labs Sodium 140 mmol/L (136-145) 04/08/19 06:25 Potassium 4.7 mmol/L (3.5-5.1) 04/08/19 06:25 Chloride 105 mmol/L (98-107) 04/08/19 06:25 Electrolytes, C-Reactive P, ESR: Reviewed - Antimicrobial Stewardship Antibiotic appropriateness: N/A Surgical Abx d/c within 24 hr: Yes De-escalation: N/A Culture review/Resistance: N/A IV to PO Switch: N/A - DM Control DM Control: Glucose 137 mg/dL (74-106) H 04/08/19 06:25 Insulin Dosing: N/A - Heart Failure/NC EF%, KATT's, B-Blockers, Diuretics: Reviewed (lisinopril) - BP Control BP Control: Blood Pressure 148/61 Blood Pressure 101/67 Blood Pressure 104/64 - QTc Review If Elevated: N/A - IV to PO Switch IV Medications: N/A - Home Meds Home Med List reviewed: Reviewed Relevent Home Meds Not ordered & why?: ibuprofen (has celecoxib ordered) - Current meds Current Medication Order Review: Reviewed
[2019-04-08 19:26] VITALS: BP 138/66; PULSE 87; RESP 18; TEMP 38.7; O2SAT 98
[2019-04-08] MEDS: Rivaroxaban 10 MG TABLET PO (20:03)
[2019-04-08] MEDS: Gabapentin 300 MG CAP PO (22:07)
[2019-04-09] MEDS: Normal Saline Flush 10 ML SYR IV ×3 (00:27→09:06)
[2019-04-09] MEDS: HYDROmorphone 2 MG/ML VIAL 0.5 MG IVP ×2 (00:28→03:58)
[2019-04-09 00:51] VITALS: BP 129/73; PULSE 86; RESP 16; TEMP 37; O2SAT 97
[2019-04-09 04:25] VITALS: BP 127/73; PULSE 87; RESP 18; TEMP 37.2; O2SAT 94
--- NOTE | 2019-04-09 06:02 | DSE_ITS ---
Date of service: 04/09/19 Time of Service: 07:52 DS: Diagnosis Discharge Diagnosis (1) Arthritis of both knees: Status: Chronic Discharge Plan Disposition Patient Disposition: HOME Condition: Improving Discharge Details Reason For Visit: BILATERAL KNEE DJD Admit Date/Time: 04/07/19 05:53 Admit Provider: James Ken Attending Provider: James Ken [facility] Hospital Course: Patient was admitted to the medical/surgical floor following the procedure. It was tolerated well without any notable medical, surgical, or anesthetic complications. Mobilization began postoperatively. The juárez catheter was removed and voiding spontaneously. Vitals were stable. Physical therapy worked with the patient and was cleared for discharge home. No acute medical issues. Home Meds and New Rx's Prescriptions: New acetaminophen 500 mg tablet 1,000 mg PO Q8H PRN (Reason: pain) Qty: 90 RF: 3 gabapentin 300 mg capsule 300 mg PO QHS Qty: 14 RF: 0 rivaroxaban 10 mg tablet 10 mg PO DAILY Qty: 12 RF: 0 celecoxib 100 mg capsule 100 mg PO BID Qty: 60 RF: 0 oxycodone 10 mg tablet 10 mg PO Q6H PRN (Reason: extreme pain) Qty: 20 RF: 0 Continued multivitamin [Daily Multi-Vitamin] 1 EACH tablet 1 ea PO DAILY RF: 0 calcium carbonate-vitamin D3 [Calcium 500 + D] 1 EACH tablet 1 ea PO DAILY RF: 0 omeprazole 20 MG tablet,delayed release (DR/EC) 20 mg PO DAILY RF: 0 lisinopril 2.5 MG tablet 5 mg PO DAILY RF: 0 ibuprofen 600 mg tablet 600 mg PO BID PRNRF: 0 Discontinued acetaminophen [Arthritis Pain Relief (acetam)] 650 MG tablet 2 tab-cap PO BID RF: 0 Discharge Instructions Additional Instructions: Dr. Ken?s Total Knee Discharge Instructions Activity: The most important activity is to walk. You should try to take short walks a few times a day. It is important that when resting you work on keeping the knee straight. Avoid putting a pillow behind the knee as this will encourage flexion. Work on range of motion exercises as provided by Physical Therapy. - Start outpatient physical therapy within 2 weeks. - You should wear the MISSY hose on both legs for 2 weeks. Dressing: Keep the surgical dressing in place for at least one week. After the first week it may be removed and replace with light gauze and tape or nothing. It may get wet after 3 days but avoid soaking the dressing. If it gets wet, just lightly pat dry. Medications: - You should take Tylenol and anti-inflammatory Celebrex as your primary pain control medications - You have been prescribed a stronger pain medication Oxycodone for breakthrough pain, take as needed as prescribed. - You should continue your stomach acid reduction agent Omeprazole to help reduce stomach acid and reflux. - You will be taking Rivaroxaban 10mg daily for DVT prevention unless instructed otherwise. - You will take Gabapentin nightly for 2 weeks to help with nightime pain and sleep. - If you have constipation you should take Colace or Miralax (both [id number]). It takes most people 3-4 days to have a bowel movement. Follow-up: 2 weeks Referrals: James Ken MD [ [facility] STAFF PHYSICIAN] - Activity:: Activity as Tolerated Equipment/Supplies:: Walker Diet:: As Tolerated Discharge Orders Discharge Orders: Discharge Order (Routine); Ordered 04/09/19 Ordered By: James Ken DS: Summary Status at Discharge Functional status at discharge: uses cane/walker Overall status at discharge: patient is progressing back to baseline Mental Status: mental status grossly normal Speech and Movement: speech and movement normal Mood: congruent mood Affect: normal affect Exam Psych Mental Status: mental status grossly normal Speech and Movement: speech and movement normal Mood: congruent mood Affect: normal affect DS: Data Vitals/I&O Vitals and I&O: Vital Signs Temperature 37.2 C 04/09/19 04:25 Temperature Source Tympanic 04/09/19 04:25 Pulse 87 04/09/19 04:25 Pulse Rhythm Regular 04/09/19 00:30 Respiratory Rate 18 04/09/19 04:25 Respiratory Effort 04/09/19 00:30 Respiratory Depth Normal 04/09/19 00:30 Respiratory Pattern Normal 04/09/19 00:30 Blood Pressure 127/73 04/09/19 04:25 Pulse Oximetry 94 L 04/09/19 04:25 Respiratory End-tidal CO2 38 04/07/19 12:25 Oxygen Delivery Method Room Air 04/09/19 04:25 Oxygen Flow Rate 0 04/09/19 04:25 Pain Level 7 04/09/19 03:58 Intake & Output 04/08/19 04/08/19 04/09/19 11:59 23:59 11:59 Intake Total 3536.667 / 3796.667 260 / 3796.667 Output Total 1200 / 1900 700 / 1900 700 / 700 Balance 2336.667 / 1896.667 -440 / 1896.667 -700 / -700 Intake: IV 2456.667 / 2476.667 20 / 2476.667 Oral 1080 / 1320 240 / 1320 Output: Urine 1200 / 1900 700 / 1900 700 / 700 Other: Urine Color Yellow Yellow Yellow Urine Appearance Clear Clear Clear Urine Odor Normal Normal Comment dark yellow Voiding Methods Toilet Toilet Data Completed and Pending Labs on day of discharge: Labs from last 24 hours 04/08/19 06:25 Sodium 140 Potassium 4.7 Chloride 105 Carbon Dioxide 26.5 Anion Gap 8.5 BUN 26 H Creatinine 0.82 Estimated GFR/1.73 m2 >= 60.00 Glucose 137 H Calcium 8.8 PFSH Medical History GERD (gastroesophageal reflux disease) (Chronic) Heart murmur (Acute) Dr. [place] Valdivia pt. follows up with last seen 02/15/19 was last seen per pt. states MD told her she was all set for surgery and there were no issues (per pt.) HTN (hypertension) (Chronic) Surgical History History of bilateral cataract extraction (Chronic) History of bursectomy (Inactive) Left trochanteric bursa excision, IT band lengthening and repair of hip abductor tendons DOS: 12/09/17 Dr. Ken History of cholecystectomy (Chronic) History of tonsillectomy and adenoidectomy (Chronic) Social History Smoking/Tobacco Use Status: Former Tobacco Use Tobacco: How many years used: 25 Alcohol Intake: current Alcohol Intake frequency: 0-2 drinks per day Alcohol type: beer and hard liquor Details: 1 beer nightly Drug use: Never Current gender identity: female Do you feel safe in your relationship?: Yes
[2019-04-09] MEDS: oxyCODONE 5 MG TAB PO ×3 (06:33→13:14)
[2019-04-09 08:46] VITALS: BP 124/75; PULSE 93; RESP 18; TEMP 37.4; O2SAT 94
[2019-04-09] MEDS: Docusate Sodium 100 MG CAP PO (09:04)
[2019-04-09] MEDS: Omeprazole 20 MG CAPCR PO (09:04)
[2019-04-09] MEDS: Acetaminophen 500 MG TAB 1000 MG PO ×2 (09:04→13:15)
[2019-04-09] MEDS: Multivitamin TAB 1 TAB PO (09:04)
[2019-04-09] MEDS: Celecoxib 200 MG CAP PO (09:04)
[2019-04-09] MEDS: Lisinopril 5 MG TAB PO (09:05)
[2019-04-09 11:26] VITALS: BP 127/74; PULSE 74; RESP 19; TEMP 37.3; O2SAT 100
--- NOTE | 2019-04-09 11:35 | PT.INTREAT ---
Date of service: 04/09/19 Time of Service: 11:35 PT Notes Visit Reasons: BILATERAL KNEE DJD 04/09/2019 SUBJECTIVE: Ирина reporting pain at a 5/10 today which is less than yesterday. She would like to practice the stairs one more time before going home. OBJECTIVE: Pt is supine in bed. Agreeable to PT treatment. TRANSFERS Supine to sit: S Sit to supine: Min A Sit to stand: SBA Stand to sit: SBA GAIT Device: FWW Weight bearing: AT bilaterally Assist: SBA Distance: 100'x2 STAIRS: 3-4 steps, 1 rail, 1 SPC, step to pattern, SBA. THEREX: Review HEP. Pt demonstrates active SLR for me today bilaterally. ASSESSMENT: Good tolerance to PT today with good understanding of stairs and management with the walker. She has good support at home if she needs it. PLAN: Pt to be discharged home. See discharge summary for details. treatment time: 25' [id number], [id number] Nemo Moore, PROFESSOR OF THEATER
--- NOTE | 2019-04-09 14:51 | PDOC.CMDIS ---
- If Service Date Differs Date of service: 04/09/19 Time of Service: 14:51 LACE Index Scoring Tool - Questions: Length of Stay (in days): 3 Acuity (Admit via E.D.?): No E.D. Visits: 0 - Answers: Total Score: 3 Risk of Readmission: Low Risk Care Management Discharge Reason for Hospitalization: Bilateral Knee DJD Discharge Plan: Ирина will return home with no additional services at this time. She will follow up with Ortho as recommended. Her will drive her home via private vehicle. CM provided Ирина with a blank [place] AD, as requested by Ирина. She is agreeable to returning home. Patient/Family Education Needs: Review discharge instructions regarding activity levels and medications, discussion of self care needs including ask me three
--- NOTE | 2019-04-13 17:00 | PT.INDS ---
Date of service: 04/13/19 PT Notes Visit Reasons: BILATERAL KNEE DJD Physical Therapy Inpatient Discharge Summary Date: 04/13/2019 Dates of Service: 04/07/2019 through 04/09/2019 This is a clinical summary of care provided on the duration of dates listed above. No charge was made in the completion of this documentation. Patient Profile/Admitting Diagnosis: Pt is a 64-year-old female presenting status post bilateral total knee arthroplasty on post-operative day zero. Objective: General Observation: Mepilex dressing over bilateral incisions with KATT bandages. Thromboembolic pumps on bilateral LEs. Lowery catheter in place. IV line in R UE. Alert and and oriented x 4 Pain: 0/10 ROM: Right Upper Extremity: Shoulder Flexion WFL. Shoulder abduction WFL. Elbow flexion WFL. Wrist flexion WFL. Opening and closing of hand WFL. Left Upper Extremity: Shoulder Flexion WFL. Shoulder abduction WFL. Elbow flexion WFL. Wrist flexion WFL. Opening and closing of hand WFL. Right Lower Extremity: Hip flexion WFL. Hip abduction WFL. Knee flexion -14 degrees. Knee extension 94 degrees. Ankle dorsiflexion WFL. Ankle plantarflexion WFL. Left Lower Extremity: Hip flexion WFL. Hip abduction WFL. Knee flexion -8 degrees. Knee extension 105 degrees. Ankle dorsiflexion WFL. Ankle plantarflexion WFL. Strength: Right Upper Extremity: Shoulder flexors 5/5. Shoulder abductors 5/5. Elbow flexors 5/5. Elbow extensors 5/5. Digital Printer Operator strong. Left Upper Extremity: Shoulder flexors 5/5. Shoulder abductors 5/5. Elbow flexors 5/5. Elbow extensors 5/5. Digital Printer Operator strong. Right Lower Extremity: Hip flexors 4/5. Hip abductors 4+/5. Knee flexors 3-/5. Knee extensors 3-/5. Ankle dorsiflexors 4+/5. Ankle plantarflexors 5/5. Left Lower Extremity: Hip flexors 4-/5. Hip abductors 4+/5. Knee flexors 3-/5. Knee extensors 3-/5. Ankle dorsiflexors 4+/5. Ankle plantarflexors 5/5. Sensation: Intact as to pain and pressure on bilateral lower extremities. Bed Mobility/Transfers: Rolling Supervision Supine to sit Supervision Sit to supine Min A Sit to stand SBA Stand to sit SBA Bed to chair CGA Chair to bed CGA Gait: Pt was able to ambulate 100 feet x 2, WBAT on the right and left lower extremity, using a front-wheeled walker. SBA provided by [facility] with wheelchair follow provided by PT student. Step to gait pattern with decreased step length and height. Stairs: Pt was able to ascend and descend the 4-inch step x 3 with one rail and single point cane. SBA provided by [facility]. Step to gait pattern. Balance: Static Sitting: Normal Dynamic Sitting: Normal Static Standing: Fair Dynamic Standing: Fair Assessment: Pt is a 64-year-old female presented status post bilateral total knee arthroplasty. She presented to physical therapy with impairment level findings and functional limitations as listed below. She demonstrated improvements in mobility as she was able ambulate a greater distance without complaints of increased pain or fatigue. This is a significant improvement from her initial evaluation in which she was only able to tolerate 8 feet before becoming lightheaded and nauseous. She was able tolerate negotiation of three 4-inch steps with unilateral upper extremity support and the use of a single point cane, without complaints of increased pain. Pt would continue to benefit from skilled physical therapy when discharged to home for a safe transition into the home setting. Patient presented with clinical signs and symptoms consistent with current/admitting diagnoses that have resulted to mobility limitations, gait instability, and generalized weakness as demonstrated by the following impairment level findings: 1. Decreased strength to B LE major muscle groups 2. Impaired standing balance 3. Impaired activity tolerance 4. Limitation of joint range of motion in bilateral knees Impairments continue to contribute to the following functional limitations: 1. Dependent bed mobility skills 2. Increased dependence with transfers 3. Inability to safely ambulate without assistive device and physical assistance 4. Increase completion time for mobility ADL performance 5. Increased fall risk 6. Inability to negotiate steps alone safely Patient was assessed as a [id number] moderate complexity based on the following: History: She presented to physical therapy with impairment level findings and functional limitations as listed above. AM-PAC raw score of 20 with 36% deficit. Examination: Demonstrable impairment in strength, balance, and range of motion with underlying impairments and functional limitations as documented above Presentation: Evolving Decision Makin moderate complexity Goals: Goals X1 week 1. Supine-Sit independent -NOT MET 2. Sit-Supine independent-NOT MET 3. Sit-Stand independent-NOT MET 4. Stand-Sit independent-NOT MET 5. Bed-Chair independent-NOT MET 6. Chair-Bed independent-NOT MET 7. Independent gait on level surface with use of least restrictive device for at least 300 feet without report of pain nor dyspnea-NOT MET 8. Independent stair negotiation while holding onto bilateral upper extremity support for at least 5 steps without report of pain nor dyspnea-NOT MET 9. Independent with home exercise program -NOT MET 10. Good static and dynamic standing balance/tolerance-NOT MET DISCHARGE RECOMMENDATIONS: Discharge to home when medically cleared. PT will benefit from home health physical therapy for continued skilled physical therapy services in order to progress mobility level, strength, and balance in preparation for a smooth discharge to home. Recommend the pt ambulate with a front-wheeled walker at this time. Thank you very much for this referral. Damion Harper, SPT Doctor of Physical Therapy Student [facility] Supervision provided by Luly Boucher PT, DPT, CLT [facility] [place], [place]
== END 2019-04-09 13:43 | disposition home or self-care (01) | DRG 462 ==
LOC: PDS 05:53 → MS 12:42
PROVIDERS: Admitting Provider Student in an Organized Health Care Education/Training Program; PCP Family Medicine; Visit Provider Student in an Organized Health Care Education/Training Program
PROC: 0SRC0JZ Replacement of Right Knee Joint with Synthetic Substitute, Open Approach (ICD-10-PCS; CPT 27447; principal; 2019-04-07 08:15)
DX: M17.0 Bilateral primary osteoarthritis of knee (principal); M25.561 Pain in right knee; M25.562 Pain in left knee; Z96.653 Presence of artificial knee joint, bilateral; G89.18 Other acute postprocedural pain; K21.9 Gastro-esophageal reflux disease without esophagitis; I10 Essential (primary) hypertension; R01.1 Cardiac murmur, unspecified; Z23 Encounter for immunization
CPT/HCPCS: 27447; 20985; 36415; 76942; 80048; 97110; 97162; 97530; NC; J0690; J1100; J1885; J2001; J2250; J2405; J3010

== ENCOUNTER 2019-04-23 11:20 | Outpatient (CLI) | payer OTHER, SELFPAY ==
--- NOTE | 2019-04-23 09:45 | DI.RAD_ITS ---
EXAM: XR STANDING ALIGNMENT and XR knee RT one-view and XR knee LT one view CLINICAL HISTORY: f/u bilateral TKA. TECHNIQUE: 2D digital imaging was performed. COMPARISON: XR STANDING ALIGNMENT from 03/30/2019 FINDINGS: BONES: No acute fracture is present. No bony destructive lesion is seen. JOINTS: There are bilateral total knee replacements. The orthopedic hardware appears in good positio n. No evidence of hardware failure is seen. There are degenerative changes of the ankles bilaterall y. SOFT TISSUE: Normal. IMPRESSION: Bilateral total knee replacements. Bilateral osteoarthritis of the ankles. DATA REPOSITORY: RADIATION DOSE DELIVERED:
== END 2019-04-23 11:40 ==
PROVIDERS: PCP Family Medicine; Visit Provider Student in an Organized Health Care Education/Training Program
DX: M17.0 Bilateral primary osteoarthritis of knee (principal); Z96.653 Presence of artificial knee joint, bilateral; M19.071 Primary osteoarthritis, right ankle and foot; M19.072 Primary osteoarthritis, left ankle and foot
CPT/HCPCS: 73560; 77073

== ENCOUNTER 2020-04-28 10:19 | Outpatient (CLI) | payer MEDICARE, SELFPAY ==
--- NOTE | 2020-04-28 10:12 | DI.RAD_ITS ---
EXAM: XR KNEE LT 2V AP,LAT INDICATION: annual f/u. COMPARISON: CR XR KNEE RT 2V AP,LAT from 04/28/2020 TECHNIQUE: 2D digital imaging was performed. FINDINGS: There is been no change in the total knee prosthesis or appearance of the surrounding bone. DATA REPOSITORY: RADIATION DOSE DELIVERED:
--- NOTE | 2020-04-28 10:13 | DI.RAD_ITS ---
EXAM: XR KNEE RT 2V AP,LAT INDICATION: annual f/u. COMPARISON: CR XR KNEE RT 1V from 04/23/2019 CR XR STANDING ALIGNMENT from 04/23/2019 CR XR STANDING ALIGNMENT from 04/23/2019 CR XR KNEE LT 1V from 04/23/2019 CR XR KNEE LT 1V from 04/23/2019 TECHNIQUE: 2D digital imaging was performed. FINDINGS: There has been no change in the total knee prosthesis or appearance of the surrounding bone. DATA REPOSITORY: RADIATION DOSE DELIVERED:
== END 2020-04-28 10:20 | disposition home or self-care (01) ==
LOC: DIORS 10:19
PROVIDERS: PCP Family Medicine; Visit Provider Student in an Organized Health Care Education/Training Program
DX: Z96.653 Presence of artificial knee joint, bilateral (principal)
CPT/HCPCS: 73560

== ENCOUNTER 2021-04-27 10:26 | Outpatient (CLI) | payer MEDICARE, SELFPAY ==
--- NOTE | 2021-04-27 10:00 | DI.RAD_ITS ---
Exam(s) XR KNEE LT 2V AP,LAT EXAM: XR KNEE LT 2V AP,LAT CLINICAL HISTORY: HISTORY BILATERAL KNEE REPLACEMENTS TECHNIQUE: COMPARISON: CR XR KNEE LT 2V AP,LAT from 04/28/2020 FINDINGS: Two views were obtained. There is total knee joint replacement in position. The components appear w ell seated. No other significant bony abnormality seen. IMPRESSION: RADIATION DOSE DELIVERED: Total DLP
--- NOTE | 2021-04-27 10:00 | DI.RAD_ITS ---
Exam(s) XR KNEE RT 2V AP,LAT EXAM: XR KNEE RT 2V AP,LAT CLINICAL HISTORY: HISTORY BILATERAL KNEE REPLACEMENTS TECHNIQUE: COMPARISON: CR XR KNEE LT 2V AP,LAT from 04/27/2021 FINDINGS: Two views were obtained and show total knee joint replacement in position. The components appear wel l seated. No other significant bony abnormality seen. IMPRESSION: RADIATION DOSE DELIVERED: Total DLP
== END 2021-04-27 10:27 | disposition home or self-care (01) ==
LOC: DIORS 10:26
PROVIDERS: PCP Family Medicine; Visit Provider Student in an Organized Health Care Education/Training Program
DX: Z96.653 Presence of artificial knee joint, bilateral (principal)
CPT/HCPCS: 99213; 73560

== ENCOUNTER → 2022-12-11 08:02 | Outpatient (BNVA) | payer MEDICARE, SELFPAY | PROVIDERS: PCP Family Medicine; Referring Provider Family Medicine; Visit Provider Podiatrist | DX: B07.9 Viral wart, unspecified (principal); L84 Corns and callosities; Q82.8 Other specified congenital malformations of skin; M79.672 Pain in left foot | CPT/HCPCS: 17110 ==

== ENCOUNTER → 2023-01-06 13:32 | Outpatient (BNVA) | payer MEDICARE, SELFPAY | PROVIDERS: PCP Family Medicine; Referring Provider Family Medicine; Visit Provider Podiatrist | DX: B07.9 Viral wart, unspecified (principal); Q82.8 Other specified congenital malformations of skin; B07.0 Plantar wart; L84 Corns and callosities; M79.672 Pain in left foot | CPT/HCPCS: 17110 ==

== ENCOUNTER → 2023-02-05 12:57 | Outpatient (BNVA) | payer MEDICARE, SELFPAY | PROVIDERS: PCP Family Medicine; Referring Provider Family Medicine; Visit Provider Podiatrist | DX: B07.0 Plantar wart (principal); Q82.8 Other specified congenital malformations of skin; L84 Corns and callosities; M79.672 Pain in left foot; R09.89 Other specified symptoms and signs involving the circulatory and respiratory systems; L56.5 Disseminated superficial actinic porokeratosis (DSAP) | CPT/HCPCS: 17110 ==

== ENCOUNTER → 2023-03-12 13:09 | Outpatient (BNVA) | payer MEDICARE, SELFPAY | PROVIDERS: PCP Family Medicine; Referring Provider Family Medicine; Visit Provider Podiatrist | DX: B07.9 Viral wart, unspecified; Q82.8 Other specified congenital malformations of skin; B07.0 Plantar wart; L84 Corns and callosities; M79.672 Pain in left foot | CPT/HCPCS: 17110 ==

== ENCOUNTER → 2023-04-09 13:06 | Outpatient (BNVA) | payer MEDICARE, SELFPAY | PROVIDERS: PCP Family Medicine; Referring Provider Family Medicine; Visit Provider Podiatrist | DX: B07.0 Plantar wart (principal); Q82.8 Other specified congenital malformations of skin; L84 Corns and callosities; M79.672 Pain in left foot | CPT/HCPCS: 17110 ==

== ENCOUNTER → 2023-05-14 13:01 | Outpatient (BNVA) | payer MEDICARE, SELFPAY | PROVIDERS: PCP Family Medicine; Referring Provider Family Medicine; Visit Provider Podiatrist | DX: Q82.8 Other specified congenital malformations of skin; B07.0 Plantar wart; L84 Corns and callosities; M79.672 Pain in left foot | CPT/HCPCS: 17110 ==

== ENCOUNTER 2023-07-14 08:57 | Outpatient (CLI) | payer MEDICARE, SELFPAY ==
--- NOTE | 2023-07-14 08:45 | DI.RAD_ITS ---
Exam(s) XR HIP LT AP LAT ONLY EXAM: XR HIP LT AP LAT ONLY CLINICAL HISTORY: LEFT HIP PAIN. TECHNIQUE: 2D digital imaging was performed of the left hip. Two views were obtained. AP and later al left hip views were obtained. COMPARISON: CR LUMBAR SPINE COMPLETE from 04/16/2017 CR XR STANDING ALIGNMENT from 04/23/2019 FINDINGS: BONES: No acute fracture is present. No bony destructive lesion is seen. There is again seen an ortho pedic screw in the greater trochanter. JOINTS: No dislocation present. There is a small osteophyte in the left femoral head. The joint spac es otherwise well maintained. SOFT TISSUE: Normal. IMPRESSION: Mild degenerative changes of the left hip. DATA REPOSITORY: RADIATION DOSE DELIVERED:
== END 2023-07-14 08:58 | disposition home or self-care (01) ==
LOC: DIORS 08:58
PROVIDERS: PCP Family Medicine; Referring Provider Family Medicine
DX: Z96.642 Presence of left artificial hip joint (principal); M16.12 Unilateral primary osteoarthritis, left hip
CPT/HCPCS: 99213; 73502

== ENCOUNTER 2024-10-28 04:10 | Outpatient (CLI) | payer MEDICARE, SELFPAY ==
--- NOTE | 2024-10-28 10:30 | DI.DEXA_ITS ---
Exam(s) XR DEXA BONE DENSITY W/WO KARINE EXAM: XR DEXA BONE DENSITY W/WO KARINE CLINICAL HISTORY: HX BONE DENSITY Z92.89 POST-MENOPAUSE Z78.0 SURGICAL PLANNING TECHNIQUE: COMPARISON: No exams were available for comparison FINDINGS: Lateral Spine Image: Unremarkable. No compression deformities identified. Left hip: Total T-Score: -1.1 Total Z-Score: 0.4 T- and Z-scores: Findings are consistent with osteopenia. Lumbar Spine: Total T-Score: 1.0 Total Z-Score: 3.1 T- and Z-scores: Within normal limits. IMPRESSION: No evidence of osteoporosis.
== END 2024-10-28 04:30 ==
LOC: DI 04:10
PROVIDERS: PCP Family Medicine; Visit Provider Physician Assistant Surgical
DX: Z01.818 Encounter for other preprocedural examination (principal); Z78.0 Asymptomatic menopausal state; Z92.89 Personal history of other medical treatment
CPT/HCPCS: 77080